=== PATIENT | male | born 2000 | race American Indian/Alaskan Native ===

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

== ENCOUNTER 2022-05-04 13:03 | Emergency (ER) | payer MEDICAID ==
[2022-05-04 13:22] VITALS: BP 130/87; PULSE 83
[2022-05-04] MEDS ORDERED: Bacitracin Oint 1 GM U/D Packet TOP ONE (13:36)
== END 2022-05-04 13:47 | disposition home or self-care (01) ==
LOC: DL.ED 13:03
DX: L03.011 Cellulitis of right finger (principal); F17.210 Nicotine dependence, cigarettes, uncomplicated; Z88.0 Allergy status to penicillin; Z88.1 Allergy status to other antibiotic agents; Z86.16 Personal history of COVID-19
CPT/HCPCS: 99283

== ENCOUNTER 2023-06-29 16:43 | Emergency (ER) | payer MEDICARE, MEDICAID ==
[2023-06-29 17:22] VITALS: BP 139/93; PULSE 81
== END 2023-06-29 17:18 | disposition home or self-care (01) ==
LOC: DL.ED 16:43
DX: H10.021 Other mucopurulent conjunctivitis, right eye (principal); B30.1 Conjunctivitis due to adenovirus; Z86.16 Personal history of COVID-19; Z79.899 Other long term (current) drug therapy; Z88.1 Allergy status to other antibiotic agents
CPT/HCPCS: 99282; 99283